=== PATIENT | female | born 1980 | race American Indian/Alaskan Native ===

== ENCOUNTER 2022-01-23 10:30 | Emergency (ER) | payer SELFPAY ==
--- NOTE | 2022-01-23 11:12 | Emergency Department Report ---
Blank Doc - Documentation Documentation: 41-year-old female that presents with left flank pain rating to the abdomen with nausea vomiting. 1- This is a initial triage assessment/medical screening only. Full assessment and work-up will be completed once the patient is in proper hospital gown, ED bed and in a private room setting. This initial assessment/diagnostic orders/clinical plan/ treatment(s) is/are subject to change based on pt's health status, clinical progression and re-assessment by fellow clinical providers in the ED. Further treatment and workup at subsequent clinical providers discretion. Patient/guardians urged not to elope from ED as their condition may be serious if not clinically assessed and managed. 2-labs 3-UA The patient was evaluated in the emergency department for symptoms described in the history of present illness. He/she was evaluated in the context of the global COVID-19 pandemic, which necessitated consideration that the patient might be at risk for infection with the virus that causes COVID-19. Institutional protocols and algorithms that pertain to the evaluation of p atients at risk for COVID-19 are in a state of rapid change based on information released by regulatory bodies including the CDC and federal and state organizations. These policies and algorithms were followed during the patient's care in the emergency department. Please note that these policies, procedures and recommendations changed on a rapid basis.
[2022-01-23 11:59] LABS: Hematocrit 30.8 % (30.3-42.9); Hemoglobin 10.5 gm/dl (10.1-14.3); Mean Corpuscular HGB Conc 34 % (30-34); Mean Corpuscular Volume 80 fl (79-97); Platelet Count 248 K/mm3 (140-440); Red Blood Count 3.83 M/mm3 (3.65-5.03); Red Cell Distribution Width 15.8 % (13.2-15.2)
[2022-01-23] MEDS ORDERED: MORPHINE 4 MG/1 ML INJ IM ONE (12:28)
--- NOTE | 2022-01-23 12:31 | Emergency Department Report ---
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 Patient denies any history of kidney stones. Patient does report dark urine since yesterday. Patient reports that pain is 9 out of 10. Has not take any medication for symptoms. Patient reports no other acute signs or symptoms at this time. Severity scale (0 -10): 9 - Related Data Previous Rx's Medication Instructions Recorded Last Taken Type HYDROcodone/APAP 5-325 [[place] 1 each PO Q6HR PRN 3 Days #10 01/23/22 Unknown Rx 5-325 mg TAB] tablet Allergies Allergy/AdvReac Type Severity Reaction Status Date / Time No Known Allergies Allergy Unverified 01/23/22 10:55 ED Review of Systems ROS: Stated complaint: CHEST PAIN AND SIDE PAIN Other details as noted in HPI Comment: All other systems reviewed and negative Gastrointestinal: abdominal pain, other (Left flank pain). denies: nausea, vomiting, diarrhea ED Past Medical Hx - Past Medical History Previous Medical History?: Yes Hx Hypertension: Yes - Surgical History Hx Cholecystectomy: Yes Hx Appendectomy: Yes Additional Surgical History: brain sx, R ankle - Medications Home Medications: Home Medications Medication Instructions Recorded Confirmed Last Taken Type HYDROcodone/APAP 5-325 [[place] 1 each PO Q6HR PRN 3 Days #10 01/23/22 Unknown Rx 5-325 mg TAB] tablet ED Physical Exam - General Limitations: No Limitations General appearance: alert, in no apparent distress - Head Head exam: Present: atraumatic, normocephalic - Eye Eye exam: Present: normal appearance - ENT ENT exam: Present: mucous membranes moist - Neck Neck exam: Present: normal inspection - Respiratory Respiratory exam: Present: normal lung sounds bilaterally. Absent: respiratory distress - Cardiovascular Cardiovascular Exam: Present: regular rate, normal rhythm. Absent: systolic murmur, diastolic murmur, rubs, gallop - GI/Abdominal GI/Abdominal exam: Present: soft, distended, tenderness, guarding, normal bowel sounds. Absent: rebound, rigid - Extremities Exam Extremities exam: Present: normal inspection - Back Exam Back exam: Present: normal inspection - Neurological Exam Neurological exam: Present: alert, oriented X3 - Psychiatric Psychiatric exam: Present: normal affect, normal mood - Skin Skin exam: Present: warm, dry, intact, normal color. Absent: rash ED Course Vital Signs 01/23/22 01/23/22 01/23/22 10:52 15:48 17:39 Temperature 99.7 F H 101.4 F H 98.5 F Pulse Rate 120 H Respiratory 18 Rate Blood Pressure 120/84 [Left] O2 Sat by Pulse 97 Oximetry 01/23/22 18:10 Temperature 98.5 F Pulse Rate 74 Respiratory 20 Rate Blood Pressure 158/91 [Left] O2 Sat by Pulse 96 Oximetry ED Medical Decision Making - Lab Data Result diagrams: 01/23/22 11:20 01/23/22 11:20 - Radiology Data [facility] [address] [place] [address] Cat Scan Report Signed Patient: BRAD PEARCE MR#: [id number] : 1980 Acct:[id number] Age/Sex: 41 / F ADM Date: 01/23/22 Loc: ED Attending Dr: Ordering Physician: ENMANUEL PETERSON NP Date of Service: 01/23/22 Procedure(s): CT abdomen pelvis w con Accession Number(s): [id number] cc: ENMANUEL PETERSON NP CT ABDOMEN AND PELVIS WITH CONTRAST INDICATION / CLINICAL INFORMATION: abdominal pain with distention and left flank pain. TECHNIQUE: Axial CT images were obtained through the abdomen and pelvis after IV contrast. All CT scans at this location are performed using CT dose reduction for ALARA by means of automated exposure control. COMPARISON: None available. FINDINGS: LOWER CHEST: Bibasilar subsegmental atelectasis. Consolidation within the left lower lobe is concerning for pneumonia. LIVER: There are innumerable small hypoattenuating lesions throughout the liver which measure above that of simple fluid. These are concerning for metastatic disease. GALLBLADDER: Cholecystectomy. BILE DUCTS: No significant abnormality. PANCREAS: No significant abnormality. SPLEEN: Numerous hypoattenuating lesions are seen throughout the liver which measure above the density of simple fluid. These are concerning for metastatic disease. ADRENALS: No significant abnormality. RIGHT KIDNEY / URETER: No significant abnormality. LEFT KIDNEY / URETER: No significant abnormality. STOMACH / SMALL BOWEL: No significant abnormality. COLON: No significant abnormality. APPENDIX: Not visualized. PERITONEUM: No free fluid. No free air. No fluid collection. Soft tissue nodules along the medial dome of the liver adjacent to the IVC measuring up to 9 mm, concerning for peritoneal implants (series 2 image 18). LYMPH NODES: There is mesenteric lymphadenopathy with a special service representative node measuring 1.5 x 1.7 cm (series 2 image 75). There are numerous prominent retroperitoneal para-aortic lymph nodes as well. An enlarged left external iliac lymph node measures 1.3 cm in cross-section. There is similar right external iliac lymphadenopathy. There is periportal lymphadenopathy as well. AORTA / ARTERIES: Mild atherosclerotic calcification without acute abnormality. IVC / VEINS: No significant abnormality. URINARY BLADDER: No significant abnormality. REPRODUCTIVE ORGANS: There is a heterogeneous solid left ovarian mass measuring 3.4 x 2.3 x 3.0 cm (series 2 image 157). ADDITIONAL FINDINGS: A WILDLIFE REFUGE MANAGER shunt traverses the right hemithorax abdomen and terminates within the anterior lower abdomen. SKELETAL SYSTEM: Multilevel degenerative changes throughout the spine, most prominently at L4-5 where there is disc extrusion. IMPRESSION: 1. 3.4 cm heterogeneous solid left ovarian mass with bilateral iliac chain, mesenteric, and periportal lymphadenopathy as well as metastatic disease throughout the liver and spleen. 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 Gynecology consultation is recommended. 2. Likely peritoneal implants are seen along the medial dome of the liver. 3. Bibasilar subsegmental atelectasis with questionable left basilar pneumonia. 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 Patient denies any history of kidney stones. Patient does report dark urine since yesterday. Patient reports that pain is 9 out of 10. Has not take any medication for symptoms. Patient reports no other acute signs or symptoms at this time. On physical exam patient has left flank pain with upper abdominal pain. No other acute signs or symptoms noted on physical exam. CT reports IMPRESSION: 1. 3.4 cm heterogeneous solid left ovarian mass with bilateral iliac chain, mesenteric, and periportal lymphadenopathy as well as metastatic disease throughout the liver and spleen. 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 Gynecology consultation is recommended. 2. Likely peritoneal implants are seen along the medial dome of the liver. 3. Bibasilar subsegmental atelectasis with questionable left basilar pneumonia. WBC 13.7 AST ALT within normal limits Alkaline phosphate 169. Remaining labs unremarkable. Patient informed of her CT results. Patient informed to follow with [facility] [place]. As well as a gynecology oncology provider. Patient informed that follow-up is needed as soon as possible. As based off her CT results she is likely to have cancer with mets. Patient pain has been controlled with IV and oral medication. Patient discharged home with oral pain medication. Patient has received outpatient resources with phone numbers and locations of of cancer treatment center. Case discussed with Dr. Mathias. Recommends no admission is needed at this time. Patient should follow-up outpatient to see further treatment. Patient informed that her pain is not controlled she started to get worse to report back to the ER soon as possible. Vital Signs 01/23/22 01/23/22 01/23/22 10:52 15:48 17:39 Temperature 99.7 F H 101.4 F H 98.5 F Pulse Rate 120 H Respiratory 18 Rate Blood Pressure 120/84 [Left] O2 Sat by Pulse 97 Oximetry 01/23/22 18:10 Temperature 98.5 F Pulse Rate 74 Respiratory 20 Rate Blood Pressure 158/91 [Left] O2 Sat by Pulse 96 Oximetry Lab Results 01/23/22 01/23/22 01/23/22 Range/Units 11:20 11:20 11:20 WBC 13.7 H (4.5-11.0) K/mm3 RBC 3.83 (3.65-5.03) M/mm3 Hgb 10.5 (10.1-14.3) gm/dl Hct 30.8 (30.3-42.9) % MCV 80 (79-97) fl MCH 27 L (28-32) pg MCHC 34 (30-34) % RDW 15.8 H (13.2-15.2) % Plt Count 248 (140-440) K/mm3 Add Manual Diff Complete Total Counted 100 Seg Neuts % (Manual) 82.0 H (40.0-70.0) % Band Neutrophils % 1.0 % Lymphocytes % (Manual) 9.0 L (13.4-35.0) % Reactive Lymphs % (Man) 0 % Monocytes % (Manual) 6.0 (0.0-7.3) % Eosinophils % (Manual) 1.0 (0.0-4.3) % Basophils % (Manual) 1.0 (0.0-1.8) % Metamyelocytes % 0 % Myelocytes % 0 % Promyelocytes % 0 % Blast Cells % 0 % Nucleated RBC % Not Reportable Seg Neutrophils # Man 11.2 H (1.8-7.7) K/mm3 Band Neutrophils # 0.1 K/mm3 Lymphocytes # (Manual) 1.2 (1.2-5.4) K/mm3 Abs React Lymphs (Man) 0.0 K/mm3 Monocytes # (Manual) 0.8 (0.0-0.8) K/mm3 Eosinophils # (Manual) 0.1 (0.0-0.4) K/mm3 Basophils # (Manual) 0.1 (0.0-0.1) K/mm3 Metamyelocytes # 0.0 K/mm3 Myelocytes # 0.0 K/mm3 Promyelocytes # 0.0 K/mm3 Blast Cells # 0.0 K/mm3 WBC Morphology Not Reportable Hypersegmented Neuts Not Reportable Hyposegmented Neuts Not Reportable Hypogranular Neuts Not Reportable Smudge Cells Not Reportable Toxic Granulation Not Reportable Toxic Vacuolation Not Reportable Dohle Bodies Not Reportable Pelger-Huet Anomaly Not Reportable Feliberto Rods Not Reportable Platelet Estimate Consistent w auto Clumped Platelets Not Reportable Plt Clumps, EDTA Not Reportable Large Platelets Not Reportable Giant Platelets Not Reportable Platelet Satelliting Not Reportable Plt Morphology Comment Not Reportable RBC Morphology Not Reportable Dimorphic RBCs Not Reportable Polychromasia Not Reportable Hypochromasia Not Reportable Poikilocytosis Not Reportable Anisocytosis 1+ Microcytosis Not Reportable Macrocytosis Not Reportable Spherocytes Not Reportable Pappenheimer Bodies Not Reportable Sickle Cells Not Reportable Target Cells Not Reportable Tear Drop Cells Not Reportable Ovalocytes Not Reportable Helmet Cells Not Reportable [place] Bodies Not Reportable [place] Rings Not Reportable [place] Cells Not Reportable Bite Cells Not Reportable Crenated Cell Not Reportable Elliptocytes Not Reportable Acanthocytes (Spur) Not Reportable Rouleaux Not Reportable Hemoglobin C Crystals Not Reportable Schistocytes Not Reportable Malaria parasites Not Reportable Sammy Bodies Not Reportable Hem Pathologist Commnt No Sodium 132 L (137-145) mmol/L Potassium 3.1 L (3.6-5.0) mmol/L Chloride 93.1 L (98-107) mmol/L Carbon Dioxide 27 (22-30) mmol/L Anion Gap 15 mmol/L BUN 5 L (7-17) mg/dL Creatinine 0.8 (0.6-1.2) mg/dL Estimated GFR > 60 ml/min BUN/Creatinine Ratio 6 % Glucose 123 H (65-100) mg/dL Calcium 8.0 L (8.4-10.2) mg/dL Total Bilirubin 0.80 (0.1-1.2) mg/dL AST 25 (5-40) units/L ALT 27 (7-56) units/L Alkaline Phosphatase 169 H (35-129) units/L Total Protein 5.9 L (6.3-8.2) g/dL Albumin 2.7 L (3.9-5) g/dL Albumin/Globulin Ratio 0.8 % Lipase 9 L (13-60) units/L HCG, Qual Negative (Negative) Urine Color (Yellow) Urine Turbidity (Clear) Specific [place] (Man) (1.003-1.030) Ur Protein (Man) (Negative) mg/dL Ur Ketones (Man) (Negative) Ur Nitrite (Man) (Negative) Ur Reducing Substances Urine Bilirubin (Man) (Negative) Urine Ictotest Leukocyte Esterase (Man) (Negative) Urine WBC (Auto) (0.0-6.0) /HPF Urine RBC (Auto) (0.0-6.0) /HPF U Epithel Cells (Auto) (0-13.0) /HPF Urine Bacteria (Auto) (Negative) /HPF Urine RBC (Manual) (Negative) Hyaline Casts /LPF WBC Casts /LPF Urine Mucus /HPF 01/23/22 Range/Units 11:30 WBC (4.5-11.0) K/mm3 RBC (3.65-5.03) M/mm3 Hgb (10.1-14.3) gm/dl Hct (30.3-42.9) % MCV (79-97) fl MCH (28-32) pg MCHC (30-34) % RDW (13.2-15.2) % Plt Count (140-440) K/mm3 Add Manual Diff Total Counted Seg Neuts % (Manual) (40.0-70.0) % Band Neutrophils % % Lymphocytes % (Manual) (13.4-35.0) % Reactive Lymphs % (Man) % Monocytes % (Manual) (0.0-7.3) % Eosinophils % (Manual) (0.0-4.3) % Basophils % (Manual) (0.0-1.8) % Metamyelocytes % % Myelocytes % % Promyelocytes % % Blast Cells % % Nucleated RBC % Seg Neutrophils # Man (1.8-7.7) K/mm3 Band Neutrophils # K/mm3 Lymphocytes # (Manual) (1.2-5.4) K/mm3 Abs React Lymphs (Man) K/mm3 Monocytes # (Manual) (0.0-0.8) K/mm3 Eosinophils # (Manual) (0.0-0.4) K/mm3 Basophils # (Manual) (0.0-0.1) K/mm3 Metamyelocytes # K/mm3 Myelocytes # K/mm3 Promyelocytes # K/mm3 Blast Cells # K/mm3 WBC Morphology Hypersegmented Neuts Hyposegmented Neuts Hypogranular Neuts Smudge Cells Toxic Granulation Toxic Vacuolation Dohle Bodies Pelger-Huet Anomaly [place] Rods Platelet Estimate Clumped Platelets Plt Clumps, EDTA Large Platelets Giant Platelets Platelet Satelliting Plt Morphology Comment RBC Morphology Dimorphic RBCs Polychromasia Hypochromasia Poikilocytosis Anisocytosis Microcytosis Macrocytosis Spherocytes Pappenheimer Bodies Sickle Cells Target Cells Tear Drop Cells Ovalocytes Helmet Cells [place] Bodies [place] Rings [place] Cells Bite Cells Crenated Cell Elliptocytes Acanthocytes (Spur) Rouleaux Hemoglobin C Crystals Schistocytes Malaria parasites Sammy Bodies Hem Pathologist Commnt Sodium (137-145) mmol/L Potassium (3.6-5.0) mmol/L Chloride (98-107) mmol/L Carbon Dioxide (22-30) mmol/L Anion Gap mmol/L BUN (7-17) mg/dL Creatinine (0.6-1.2) mg/dL Estimated GFR ml/min BUN/Creatinine Ratio % Glucose (65-100) mg/dL Calcium (8.4-10.2) mg/dL Total Bilirubin (0.1-1.2) mg/dL AST (5-40) units/L ALT (7-56) units/L Alkaline Phosphatase (35-129) units/L Total Protein (6.3-8.2) g/dL Albumin (3.9-5) g/dL Albumin/Globulin Ratio % Lipase (13-60) units/L HCG, Qual (Negative) Urine Color Yellow (Yellow) Urine Turbidity Hazy (Clear) Specific [place] (Man) 1.010 (1.003-1.030) Ur Protein (Man) 3+ (Negative) mg/dL Ur Ketones (Man) 15 (Negative) Ur Nitrite (Man) Negative (Negative) Ur Reducing Substances Not Reportable Urine Bilirubin (Man) Negative (Negative) Urine Ictotest Not Reportable Leukocyte Esterase (Man) Negative (Negative) Urine WBC (Auto) 36.0 H (0.0-6.0) /HPF Urine RBC (Auto) 4.0 (0.0-6.0) /HPF U Epithel Cells (Auto) 3.0 (0-13.0) /HPF Urine Bacteria (Auto) 4+ (Negative) /HPF Urine RBC (Manual) Negative (Negative) Hyaline Casts 18 /LPF WBC Casts 3 /LPF Urine Mucus Few /HPF Critical care attestation.: If time is entered above; I have spent that time in minutes in the direct care of this critically ill patient, excluding procedure time. ED Disposition Clinical Impression: Abnormal finding on CT scan Abdominal pain Qualifiers: Abdominal location: right upper quadrant Qualified Code(s): R10.11 - Right upper quadrant pain Disposition: 01 HOME / SELF CARE / HOMELESS Is pt being admited?: No Condition: Stable Instructions: Abdominal Pain (ED) Additional Instructions: CT findings IMPRESSION: 1. 3.4 cm heterogeneous solid left ovarian mass with bilateral iliac chain, mesenteric, and periportal lymphadenopathy as well as metastatic disease throughout the liver and spleen. 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 Gynecology consultation is recommended. 2. Likely peritoneal implants are seen along the medial dome of the liver. 3. Bibasilar subsegmental atelectasis with questionable left basilar pneumonia. Prescriptions: HYDROcodone/APAP 5-325 [[place] 5-325 mg TAB] 1 each PO Q6HR PRN 3 Days #10 tablet PRN Reason: Pain Referrals: MIKAL ANDINO MD [Primary Care Provider] - 3-5 Days
[2022-01-23 12:33] LABS: Alanine Aminotransferase 27 units/L (7-56); Albumin 2.7 g/dL (3.9-5); BUN/Creatinine Ratio 6; Blood Urea Nitrogen 5 mg/dL (7-17); Hemolysis Index 35
[2022-01-23 12:36] LABS: Band Neutrophils # (Manual) 0.1 K/mm3; Total Cells Counted 100
[2022-01-23 12:37] LABS: Anisocytosis 1+; Platelet Estimate Consistent w Auto
[2022-01-23 12:52] LABS: Bacteria,Urine 4+ /HPF (Negative); Hyaline Casts,Urine 18 /LPF; Mucus,Urine FEW /HPF; White Blood Cell Casts,Urine 3 /LPF
[2022-01-23 13:05] LABS: Color,Urine Yellow (Yellow)
--- NOTE | 2022-01-23 13:46 | Cat Scan Report ---
CT ABDOMEN AND PELVIS WITH CONTRAST INDICATION / CLINICAL INFORMATION: abdominal pain with distention and left flank pain. TECHNIQUE: Axial CT images were obtained through the abdomen and pelvis after IV contrast. All CT sc ans at this location are performed using CT dose reduction for ALARA by means of automated exposure c ontrol. COMPARISON: None available. FINDINGS: LOWER CHEST: Bibasilar subsegmental atelectasis. Consolidation within the left lower lobe is concerni ng for pneumonia. LIVER: There are innumerable small hypoattenuating lesions throughout the liver which measure above t hat of simple fluid. These are concerning for metastatic disease. GALLBLADDER: Cholecystectomy. BILE DUCTS: No significant abnormality. PANCREAS: No significant abnormality. SPLEEN: Numerous hypoattenuating lesions are seen throughout the liver which measure above the densit y of simple fluid. These are concerning for metastatic disease. ADRENALS: No significant abnormality. RIGHT KIDNEY / URETER: No significant abnormality. LEFT KIDNEY / URETER: No significant abnormality. STOMACH / SMALL BOWEL: No significant abnormality. COLON: No significant abnormality. APPENDIX: Not visualized. PERITONEUM: No free fluid. No free air. No fluid collection. Soft tissue nodules along the medial dom e of the liver adjacent to the IVC measuring up to 9 mm, concerning for peritoneal implants (series 2 image 18). LYMPH NODES: There is mesenteric lymphadenopathy with a investment representative node measuring 1.5 x 1.7 cm (s eries 2 image 75). There are numerous prominent retroperitoneal para-aortic lymph nodes as well. An e nlarged left external iliac lymph node measures 1.3 cm in cross-section. There is similar right exter nal iliac lymphadenopathy. There is periportal lymphadenopathy as well. AORTA / ARTERIES: Mild atherosclerotic calcification without acute abnormality. IVC / VEINS: No significant abnormality. URINARY BLADDER: No significant abnormality. REPRODUCTIVE ORGANS: There is a heterogeneous solid left ovarian mass measuring 3.4 x 2.3 x 3.0 cm (s eries 2 image 157). ADDITIONAL FINDINGS: A PROPERTY TECHNICIAN shunt traverses the right hemithorax abdomen and terminates within the ante rior lower abdomen. SKELETAL SYSTEM: Multilevel degenerative changes throughout the spine, most prominently at L4-5 where there is disc extrusion. IMPRESSION: 1. 3.4 cm heterogeneous solid left ovarian mass with bilateral iliac chain, mesenteric, and periporta l lymphadenopathy as well as metastatic disease throughout the liver and spleen. Findings are consist ent with primary left ovarian malignancy. Gynecology consultation is recommended. 2. Likely peritoneal implants are seen along the medial dome of the liver. 3. Bibasilar subsegmental atelectasis with questionable left basilar pneumonia. Signer Name: Austin Flores MD Signed: 01/23/2022 1:42 PM Workstation Name: [id number]
[2022-01-23] MEDS ORDERED: HYDROmorphone 1 MG/1 ML INJ IM ONE (16:01)
[2022-01-23] MEDS ORDERED: KETOROLAC 30 MG/1 ML INJ IV ONE (16:01)
[2022-01-23] MEDS ORDERED: ACETAMINOPHEN 325 MG TAB PO ONE (16:02)
--- NOTE | 2022-01-23 16:40 | XRay Report ---
CHEST 1 VIEW 01/23/2022 4:24 PM INDICATION / CLINICAL INFORMATION: ct abnormal. COMPARISON: None available. FINDINGS: SUPPORT DEVICES: Partially visualized right-sided SENIOR TRIAL ATTORNEY shunt catheter. HEART / MEDIASTINUM: No significant abnormality. LUNGS / PLEURA: Bibasilar consolidations representing atelectasis and/or pneumonia. No pneumothorax. ADDITIONAL FINDINGS: No significant additional findings. IMPRESSION: 1. No consolidations, representing atelectasis and/or pneumonia. Signer Name: Austin Flores MD Signed: 01/23/2022 4:35 PM Workstation Name: [id number]
[2022-01-23] MEDS ORDERED: HYDROcodone/ACETAMINOPHEN 5-325 MG TAB PO ONE (17:45)
[2022-01-23 18:11] VITALS: BP 158/91
== END 2022-01-23 18:15 | disposition home or self-care (01) ==
LOC: ED 10:30
DX: R10.11 Right upper quadrant pain (principal); R93.89 Abnormal findings on diagnostic imaging of other specified body structures; I10 Essential (primary) hypertension; Z90.49 Acquired absence of other specified parts of digestive tract
CPT/HCPCS: 36415; 71045; 74177; 80053; 81001; 83690; 84703; 85007; 85025; 87086; 96372; 96374; 99284; J1170; J1885; J2270; Q9967

== ENCOUNTER 2022-01-25 12:43 | Emergency (ER) | payer SELFPAY ==
--- NOTE | 2022-01-25 14:15 | XRay Report ---
CHEST 2 VIEWS INDICATION / CLINICAL INFORMATION: Chest pain for 2 days. COMPARISON: 01/23/2022 FINDINGS: SUPPORT DEVICES: Ventriculoperitoneal shunt tubing descends the right thorax HEART / MEDIASTINUM: No significant abnormality. LUNGS / PLEURA: There is discoid atelectasis at the left lung base which is unchanged. The right lung is clear with interval resolution of discoid atelectasis in the right lower lung. No evidence for ac chrissie infiltrate, pleural effusion or pneumothorax. ADDITIONAL FINDINGS: No significant additional findings. IMPRESSION: 1. No acute findings. Mild discoid atelectasis in left lower lobe. Signer Name: Kyle Diaz Jr, MD Signed: 01/25/2022 2:10 PM Workstation Name: [id number]
[2022-01-25 15:29] LABS: Alanine Aminotransferase 23 units/L (7-56); Albumin 2.8 g/dL (3.9-5); BUN/Creatinine Ratio 9; Blood Urea Nitrogen 7 mg/dL (7-17); Hemolysis Index 0
[2022-01-25 17:16] LABS: Hemoglobin 10.8 gm/dl (10.1-14.3); Mean Corpuscular HGB Conc 33 % (30-34); Mean Corpuscular Volume 81 fl (79-97); Platelet Count 249 K/mm3 (140-440); Red Blood Count 4.07 M/mm3 (3.65-5.03); Red Cell Distribution Width 16.3 % (13.2-15.2)
[2022-01-25 18:07] LABS: Anisocytosis 1+; Band Neutrophils # (Manual) 1.3 K/mm3; Basophils % (Manual) 0 % (0.0-1.8); Hypochromasia Few; Total Cells Counted 100
[2022-01-25 18:08] LABS: Platelet Estimate Consistent w Auto
[2022-01-25] MEDS ORDERED: SODIUM CHLORIDE 0.9% 1000 ML 1,000 ML IV ONE (21:53)
[2022-01-25] MEDS ORDERED: ONDANSETRON 4 MG/2 ML INJ IV ONE (21:53)
[2022-01-25] MEDS ORDERED: MORPHINE 2 MG/1 ML INJ IV ONE (21:53)
[2022-01-25] MEDS ORDERED: POTASSIUM CHLORIDE ER 20 MEQ TAB PO ONE (21:54)
[2022-01-25] MEDS ORDERED: POTASSIUM CHLORIDE 10 MEQ 10 MEQ/100 ML BAG IV SCH (22:00)
--- NOTE | 2022-01-25 22:14 | Emergency Department Report ---
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 Patient also endorsed chest discomfort is more of a aching-like sensation which is localized and nothing makes it worse and nothing makes it better. According to the patient,she was here 2 days ago and said that on her CT scan finding there is possible cancer which she is aware that she has to follow-up with cancer center as well as gynecology oncologist but she haven't had the time to do so yet. Patient states she feel nauseated and feels that has if her abdomen has exploded. Patient denies any other discomfort denies fever chill night sweat dizziness blurred vision lightheadedness headache tinnitus ear pain runny nose sore throat loss of taste loss smell palpitation short of breath cough vomiting diarrhea constipation dysuria polyuria myalgia arthralgia new rash and heat or cold intolerance. Patient states she last smoked was 6 months ago for total of 5 years. Rarely a drinker. Denies family with myocardial infarction less than 65 years old. Severity scale (0 -10): 10 - Related Data Previous Rx's Medication Instructions Recorded Last Taken Type HYDROcodone/APAP 5-325 [[place] 1 each PO Q6HR PRN 3 Days #10 01/23/22 Unknown Rx 5-325 mg TAB] tablet Allergies Allergy/AdvReac Type Severity Reaction Status Date / Time No Known Allergies Allergy Verified 01/25/22 21:59 ED Review of Systems ROS: Stated complaint: CHEST AND STOMACH SWELLING/NAUSEA Other details as noted in HPI Comment: All other systems reviewed and negative Constitutional: no symptoms reported, see HPI Eyes: as per HPI ENT: as per HPI Respiratory: no symptoms reported, see HPI Cardiovascular: chest pain. denies: palpitations, dyspnea on exertion, orthopnea, edema Endocrine: no symptoms reported Gastrointestinal: abdominal pain (Per patient, left flank pain that's sharp and stabbing), nausea. denies: vomiting, diarrhea, constipation, hematemesis, melena, hematochezia Musculoskeletal: as per HPI Skin: as per HPI Neurological: as per HPI Psychiatric: as per HPI Hematological/Lymphatic: as per HPI ED Past Medical Hx - Past Medical History Previous Medical History?: Yes Hx Hypertension: Yes - Surgical History Past Surgical History?: Yes Hx Cholecystectomy: Yes Hx Appendectomy: Yes Additional Surgical History: brain sx, R ankle - Social History Smoking Status: Never Smoker Substance Use Type: None - Medications Home Medications: Home Medications Medication Instructions Recorded Confirmed Last Taken Type HYDROcodone/APAP 5-325 [[place] 1 each PO Q6HR PRN 3 Days #10 01/23/22 Unknown Rx 5-325 mg TAB] tablet ED Physical Exam - General Limitations: No Limitations General appearance: alert, in no apparent distress, other (Patient is lying comfortably in bed) - Head Head exam: Present: atraumatic, normocephalic, normal inspection - Eye Eye exam: Present: normal appearance, PERRL, EOMI Pupils: Present: normal accommodation - ENT ENT exam: Present: normal exam, mucous membranes moist - Neck Neck exam: Present: normal inspection - Respiratory Respiratory exam: Present: normal lung sounds bilaterally - Cardiovascular Cardiovascular Exam: Present: regular rate, normal rhythm, normal heart sounds - GI/Abdominal GI/Abdominal exam: Present: soft, normal bowel sounds. Absent: distended, tenderness, guarding, rebound, rigid - Extremities Exam Extremities exam: Present: normal inspection, full ROM, normal capillary refill - Back Exam Back exam: Present: normal inspection, full ROM - Neurological Exam Neurological exam: Present: alert, oriented X3, CN II-XII intact - Psychiatric Psychiatric exam: Present: normal affect, normal mood - Skin Skin exam: Present: normal color ED Course Vital Signs 01/25/22 01/25/22 01/26/22 13:48 23:48 00:00 Temperature 98.5 F Pulse Rate 107 H 97 H 93 H Respiratory 20 28 H 14 Rate Blood Pressure 122/71 116/65 O2 Sat by Pulse 99 94 95 Oximetry 01/26/22 01/26/22 01/26/22 00:09 00:12 00:16 Temperature Pulse Rate 93 H 91 H Respiratory 18 28 H 27 H Rate Blood Pressure 116/65 104/48 O2 Sat by Pulse 98 89 88 Oximetry 01/26/22 01/26/22 01/26/22 00:30 00:45 01:00 Temperature Pulse Rate 90 89 91 H Respiratory 23 26 H 25 H Rate Blood Pressure 97/47 77/36 O2 Sat by Pulse 88 92 92 Oximetry 01/26/22 01/26/22 01/26/22 01:16 01:30 01:46 Temperature Pulse Rate 100 H 98 H 93 H Respiratory 21 18 27 H Rate Blood Pressure 77/36 77/36 77/36 O2 Sat by Pulse 97 88 Oximetry 01/26/22 01/26/22 01/26/22 02:00 02:16 02:30 Temperature Pulse Rate 94 H 95 H 92 H Respiratory 16 25 H 26 H Rate Blood Pressure 77/36 77/36 77/36 O2 Sat by Pulse 94 88 88 Oximetry 01/26/22 02:46 Temperature Pulse Rate 95 H Respiratory 20 Rate Blood Pressure 92/32 O2 Sat by Pulse 99 Oximetry - Reevaluation(s) Reevaluation #1: 01/25/22 23:42 WAITING FOR RN TO START POTASSIUM SUPPLEMENT SO I CAN RECHECK LABS AGAIN TO ENSURE UP TRENDING. 01/26/22 03:02 I HAVE INFORMED PATIENT THAT HER K HAS IMPROVED AND THERE IS NO OTHER SIGNI FICANT FINDING. PATIENT WAS AGAIN, INFORMED SHE MUST MAKE AN APPOINTMENT TO BE SEEN AT THE CANCER CENTER (IN FRONT OF NURSE) AND PATIENT STATES "I KNOW". I HAVE INFORMED PATIENT TO RETURN TO ER IF ANY NEW SYMPTOMS. ED Medical Decision Making - Lab Data Result diagrams: 01/25/22 14:48 01/26/22 02:07 Critical care attestation.: If time is entered above; I have spent that time in minutes in the direct care of this critically ill patient, excluding procedure time. ED Disposition Clinical Impression: Abdominal pain, Hypokalemia Disposition: 01 HOME / SELF CARE / HOMELESS Is pt being admited?: No Does the pt Need Aspirin: No Condition: Stable Instructions: Hypokalemia, Abdominal Pain, Adult, [id number] Additional Instructions: FOLLOW YOUR PREVIOUS VISIT'S DISCHARGE INSTRUCTION AND FOLLOW UP WITH CANCER CENTER / GYNECOLOGY ONCOLOGIST SOON POSSIBLE. ALSO FOLLOW UP WITH PRIMARY CARE PROVIDER OF YOUR CHOICE TO BE SEEN WITHIN 3 DAYS FOR RECHECK OF YOUR POTASSIUM LEVEL. TAKE PAIN MEDICATION THAT YOU WERE PRESCRIBED ON PREVIOUS VISIT WHICH YOU STATE YOU HAVEN'T PICK IT UP AT PHARMACY YET. Referrals: MIKAL ANDINO MD [Primary Care Provider] - 3-5 Days Time of Disposition: 03:05
--- NOTE | 2022-01-26 01:36 | Cat Scan Report ---
CT abdomen pelvis wo/w con INDICATION / CLINICAL INFORMATION: LEFT SIDED FLANK SHARP [place]. TECHNIQUE: CT abdomen pelvis following 100 mL O[address] scans at this location are performed using CT dose reduction for ALARA by means of automated exposure control. COMPARISON: 01/23/2022. FINDINGS: Abdomen and pelvis: There is worsening bibasilar opacity suspicious for worsening subsegmental atelec tasis. Innumerable hypodensities identified throughout the liver and spleen with associated hepatosplenomega ly. These lesions are again suspicious for metastatic disease. The upper GI tract and small bowel trish ear grossly unremarkable. The pancreas adrenal glands and kidneys appear unchanged. Ventriculoperiton eal shunt catheter is noted within the abdomen. Extensive prominence of the retroperitoneal nodes are again noted. Both ovaries are mildly enlarged and contain both solid and cystic components similar t o 01/15/2022. Urinary bladder is fluid distended. There is no hydronephrosis or evidence of obstructiv e ureteral calculus. Multiple pelvic phleboliths are present. Review of bone windows demonstrates mil d thoracolumbar degenerative changes IMPRESSION: Severe hepatic metastatic disease with hepatosplenomegaly. No significant change from 12/28. Signer Name: Vlad Page MD Signed: 01/26/2022 1:32 AM Workstation Name: [id number]
[2022-01-26] MEDS ORDERED: SODIUM CHLORIDE 0.9% 1000 ML 1,000 ML ONE (02:40)
[2022-01-26] MEDS ORDERED: MORPHINE 2 MG/1 ML INJ IV ONE (02:47)
[2022-01-26] MEDS ORDERED: MORPHINE 2 MG/1 ML INJ ONE (02:48)
[2022-01-26 03:04] VITALS: BP 98/52
--- NOTE | 2022-01-26 18:07 | Electrocardiograph Report ---
[facility] Test Date: 2022-01-25 Test Time: 14:00:28 Pat Name: BRAD PEARCE Department: Room: Gender: F [employer] Designer: ERNESTO : 1980 Requested By: BING DOUGLAS Order Number: [id number] Reading MD: Brandon Ojeda Measurements Intervals [place] Rate: 104 P: 42 MN: 135 QRS: 66 QRSD: 94 T: 48 QT: 395 QTc: 519 Interpretive Statements Sinus tachycardia Prolonged QT interval No previous ECG available for comparison Electronically Signed On 01-26-2022 18:07:37 EDT by Brandon Ojeda
== END 2022-01-26 03:13 | disposition home or self-care (01) ==
LOC: ED 12:43
DX: R10.9 Unspecified abdominal pain (principal)
CPT/HCPCS: 36415; 71046; 74178; 80053; 82140; 83735; 84132; 84484; 85007; 85025; 93005; 96365; 96375; 96376; 99284; J2270; J2405; J3480; J7030; Q9967; 96361